=== PATIENT | male | born 1995 | race Caucasian/White ===

== ENCOUNTER 2021-09-20 11:34 | Emergency (ER) | payer SELFPAY ==
[~2021-09-20] VITALS: Ht 185.4 cm; Wt 81.7 kg
[2021-09-20 12:10] LABS: BASOPHILS ABSOLUTE AUTO 0.06 K/mm3 (0.00-0.23); BASOPHILS PERCENT AUTO 1 % (0-2); EOSINOPHILS ABSOLUTE AUTO 0.32 K/mm3 (0.00-0.68); EOSINOPHILS PERCENT AUTO 4 % (0-6); Hematocrit 42.9 % (37.0-53.0); Hemoglobin 14.6 g/dL (13.5-17.5); IMMATURE GRAN ABSOLUTE AUTO 0.04 K/mm3 (0.00-0.10); IMMATURE GRAN PERCENT AUTO 1 % (0-1); LYMPHOCYTES ABSOLUTE AUTO 2.56 K/mm3 (0.84-5.20); LYMPHOCYTES PERCENT AUTO 29 % (21-46); MONOCYTES ABSOLUTE AUTO 0.72 K/mm3 (0.16-1.47); MONOCYTES PERCENT AUTO 8 % (4-13); Mean Corpuscular HGB 31.2 pg (26.0-34.0); Mean Corpuscular Volume 92 fL (80-100); Mean Platelet Volume 8.6 fL (9.1-12.4); NEUTROPHILS ABSOLUTE AUTO 5.08 K/mm3 (1.96-9.15); NEUTROPHILS PERCENT AUTO 58 % (41-73); Platelet Count 561 K/mm3 (150-400); Red Blood Cell Count 4.68 M/mm3 (4.30-5.90); White Blood Cell Count 8.78 K/mm3 (4.00-11.30)
[2021-09-20 12:33] LABS: Alanine Aminotransfer (ALT/SGP 34 U/L (12-78); Albumin, Blood 3.6 g/dL (3.4-5.0); Albumin/Globulin Ratio 0.9 (0.8-1.8); Alk Phos 153 U/L (50-136); Anion Gap 2 mmol/L (6-16); Aspartate Aminotrans (AST/SGOT 17 U/L (12-37); Bilirubin, Total 0.6 mg/dL (0.1-1.0); Blood Urea Nitrogen 14 mg/dL (8-24); Bun/Creatinine Ratio 14.8 (12.0-20.0); CO2, Blood 31 mmol/L (21-32); CPK Creatine Kinase 130 U/L (39-308); Calcium, Blood 9.4 mg/dL (8.5-10.1); Chloride, Blood 104 mmol/L (98-108); Creatinine, Blood 0.95 mg/dL (0.60-1.20); Globulin, Blood 4.2 g/dL (2.2-4.0); Glomerular Filtration Rate >60 (60-); Glucose, Blood 113 mg/dL (70-99); Sodium, Blood 137 mmol/L (136-145); Total Protein, Blood 7.8 g/dL (6.4-8.2)
[2021-09-20 12:46] LABS: Creatine Kinase MB <1.0 ng/mL (0.0-3.6); Creatine Kinase MB Index Unable to Calculate (0.0-4.0)
[2021-09-20 16:14] LABS: Source, Urine Clean Catch
[2021-09-20 16:22] LABS: Appearance, Urine Clear (Clear); Bilirubin, Urine Neg (Neg); Blood, Urine Neg (Neg); Color, Urine Yellow (P-Yellow); Glucose Qualitative, Urine Neg (Neg); Ketones, Urine Neg (Neg); Leukocyte Esterase, Urine 1+ (Neg); Nitrite, Urine Neg (Neg); Protein, Urine Neg (Neg); Specific Gravity, Urine 1.025 (1.003-1.022); Urobilinogen, Urine NORM (Normal)
[2021-09-20 16:37] LABS: Bacteria Rare /hpf; Red Blood Cells, Urine 0-2 /hpf (0-2); Squamous Epithelial Cells Rare /hpf (Few); White Blood Cells, Urine 0-2 /hpf (0-5)
[2021-09-20] MEDS ORDERED: HYDR1TAB94 PO (18:53)
[2021-09-20] MEDS ORDERED: IBU800 MG PO (18:53)
== END 2021-09-20 19:01 | disposition home or self-care (01) ==
LOC: ER 11:34
PROVIDERS: Physician Assistant
DX: S42.202A Unspecified fracture of upper end of left humerus, initial encounter for closed fracture (principal); S42.201A Unspecified fracture of upper end of right humerus, initial encounter for closed fracture; S22.049A Unspecified fracture of fourth thoracic vertebra, initial encounter for closed fracture; S22.059A Unspecified fracture of T5-T6 vertebra, initial encounter for closed fracture; S22.079A Unspecified fracture of T9-T10 vertebra, initial encounter for closed fracture; X58.XXXA Exposure to other specified factors, initial encounter
CPT/HCPCS: 71260; 80053; 81001; 82550; 82553; 85025; 87086; 99283; A9270; J1885; Q9967

== ENCOUNTER 2021-10-19 15:40 | Emergency (ER) | payer BC ==
[~2021-10-19] VITALS: Ht 185.4 cm; Wt 81.7 kg
[~2021-10-19 15:40] MED LIST: HYDR1TAB94 PO; IBU800 MG PO
[2021-10-19 16:32] LABS: BASOPHILS ABSOLUTE AUTO 0.11 K/mm3 (0.00-0.23); BASOPHILS PERCENT AUTO 1 % (0-2); EOSINOPHILS ABSOLUTE AUTO 1.24 K/mm3 (0.00-0.68); EOSINOPHILS PERCENT AUTO 12 % (0-6); Hematocrit 49.6 % (37.0-53.0); Hemoglobin 15.4 g/dL (13.5-17.5); IMMATURE GRAN ABSOLUTE AUTO 0.08 K/mm3 (0.00-0.10); IMMATURE GRAN PERCENT AUTO 1 % (0-1); LYMPHOCYTES PERCENT AUTO 39 % (21-46); MONOCYTES ABSOLUTE AUTO 0.62 K/mm3 (0.16-1.47); MONOCYTES PERCENT AUTO 6 % (4-13); Mean Corpuscular HGB 29.7 pg (26.0-34.0); Mean Corpuscular Volume 96 fL (80-100); Mean Platelet Volume 9.4 fL (9.1-12.4); NEUTROPHILS ABSOLUTE AUTO 4.35 K/mm3 (1.96-9.15); NEUTROPHILS PERCENT AUTO 42 % (41-73); Platelet Count 414 K/mm3 (150-400); RDW Coefficient Variation 11.8 % (11.7-14.2); RDW Standard Deviation 41.3 fL (35.1-46.3); Red Blood Cell Count 5.19 M/mm3 (4.30-5.90)
[2021-10-19] MEDS ORDERED: BUPROPION XL450 MG PO (16:39)
[2021-10-19] MEDS ORDERED: ALPR1 PO (16:40)
[2021-10-19] MEDS ORDERED: ABILIFY MYCITE10 M2 PO (16:40)
[2021-10-19] MEDS ORDERED: CYCL10 PO (16:40)
[2021-10-19 16:50] LABS: Alanine Aminotransfer (ALT/SGP 34 U/L (12-78); Albumin, Blood 4.2 g/dL (3.4-5.0); Albumin/Globulin Ratio 0.9 (0.8-1.8); Alk Phos 162 U/L (50-136); Anion Gap 14 mmol/L (6-16); Aspartate Aminotrans (AST/SGOT 26 U/L (12-37); Bilirubin, Total 0.3 mg/dL (0.1-1.0); Blood Urea Nitrogen 16 mg/dL (8-24); Bun/Creatinine Ratio 16.9 (12.0-20.0); CO2, Blood 18 mmol/L (21-32); Calcium, Blood 9.4 mg/dL (8.5-10.1); Chloride, Blood 106 mmol/L (98-108); Creatinine, Blood 0.95 mg/dL (0.60-1.20); Globulin, Blood 4.5 g/dL (2.2-4.0); Glomerular Filtration Rate >60 (60-); Glucose, Blood 78 mg/dL (70-99); Prolactin 6.2 ng/mL (2.5-17.4); Sodium, Blood 138 mmol/L (136-145); Total Protein, Blood 8.7 g/dL (6.4-8.2)
[2021-10-19] MEDS ORDERED: Xanax1 MG PO (17:41)
== END 2021-10-19 17:57 | disposition home or self-care (01) ==
LOC: ER 15:40
PROVIDERS: Emergency Medicine
DX: R56.9 Unspecified convulsions (principal); F32.89 Other specified depressive episodes
CPT/HCPCS: 70450; 73070; 80053; 84146; 85025; A9270; J2060

== ENCOUNTER 2022-01-07 09:26 | Emergency (ER) | payer BC ==
[~2022-01-07] VITALS: Ht 185.4 cm; Wt 81.2 kg
[~2022-01-07 09:26] MED LIST changes: +ABILIFY MYCITE10 M2 PO; +ALPR1 PO; +BUPROPION XL450 MG PO; +CYCL10 PO; +Xanax1 MG PO
[2022-01-07 10:21] LABS: BASOPHILS ABSOLUTE AUTO 0.06 K/mm3 (0.00-0.23); BASOPHILS PERCENT AUTO 0 % (0-2); EOSINOPHILS PERCENT AUTO 1 % (0-6); Hematocrit 46.9 % (37.0-53.0); Hemoglobin 16.4 g/dL (13.5-17.5); IMMATURE GRAN ABSOLUTE AUTO 0.09 K/mm3 (0.00-0.10); IMMATURE GRAN PERCENT AUTO 1 % (0-1); LYMPHOCYTES ABSOLUTE AUTO 2.26 K/mm3 (0.84-5.20); LYMPHOCYTES PERCENT AUTO 17 % (21-46); MONOCYTES ABSOLUTE AUTO 0.81 K/mm3 (0.16-1.47); MONOCYTES PERCENT AUTO 6 % (4-13); Mean Corpuscular HGB 29.2 pg (26.0-34.0); Mean Corpuscular Volume 84 fL (80-100); Mean Platelet Volume 9.3 fL (9.1-12.4); NEUTROPHILS ABSOLUTE AUTO 10.28 K/mm3 (1.96-9.15); NEUTROPHILS PERCENT AUTO 76 % (41-73); Platelet Count 308 K/mm3 (150-400); RDW Coefficient Variation 12.4 % (11.7-14.2); RDW Standard Deviation 37.7 fL (35.1-46.3); Red Blood Cell Count 5.62 M/mm3 (4.30-5.90)
[2022-01-07 10:48] LABS: Alanine Aminotransfer (ALT/SGP 24 U/L (12-78); Albumin, Blood 4.9 g/dL (3.4-5.0); Albumin/Globulin Ratio 1.4 (0.8-1.8); Alk Phos 126 U/L (50-136); Anion Gap 10 mmol/L (6-16); Aspartate Aminotrans (AST/SGOT 22 U/L (12-37); Bilirubin, Total 0.3 mg/dL (0.1-1.0); Blood Urea Nitrogen 11 mg/dL (8-24); Bun/Creatinine Ratio 15.9 (12.0-20.0); CO2, Blood 22 mmol/L (21-32); Calcium, Blood 9.1 mg/dL (8.5-10.1); Chloride, Blood 109 mmol/L (98-108); Creatinine, Blood 0.69 mg/dL (0.60-1.20); Globulin, Blood 3.4 g/dL (2.2-4.0); Glomerular Filtration Rate >60 (60-); Glucose, Blood 94 mg/dL (70-99); Potassium, Blood 3.6 mmol/L (3.5-5.5); Sodium, Blood 141 mmol/L (136-145); Total Protein, Blood 8.3 g/dL (6.4-8.2)
[2022-01-07 11:14] LABS: Influenza A, PCR NEGATIVE (NEGATIVE); Influenza B, PCR NEGATIVE (NEGATIVE); Resp Syncytial Virus, PCR NEGATIVE (NEGATIVE); SARS-Cov-2 (COVID-19) PCR, MMC NEGATIVE (NEGATIVE)
[2022-01-07 11:40] LABS: Source, Urine Clean Catch
[2022-01-07 11:52] LABS: Bilirubin, Urine Neg (Neg); Blood, Urine Neg (Neg); Glucose Qualitative, Urine Neg (Neg); Ketones, Urine 2+ (Neg); Leukocyte Esterase, Urine Neg (Neg); Nitrite, Urine Neg (Neg); Protein, Urine 1+ (Neg); Specific Gravity, Urine 1.015 (1.003-1.022); Urobilinogen, Urine NORM (Normal)
[2022-01-07 12:08] LABS: Appearance, Urine Clear (Clear); Color, Urine Pale Yellow (P-Yellow)
[2022-01-07] MEDS ORDERED: ONDA4ODT MM (12:17)
== END 2022-01-07 13:15 | disposition home or self-care (01) ==
LOC: ER 09:26
PROVIDERS: Physician Assistant
DX: R11.2 Nausea with vomiting, unspecified (principal); Z79.899 Other long term (current) drug therapy
CPT/HCPCS: 0241U; 36415; 80053; 83690; 85025; 96374; 99284; J2405; J7030

== ENCOUNTER 2022-12-22 15:07 | Emergency (ER) | payer OTHER ==
[~2022-12-22] VITALS: Ht 185.4 cm; Wt 88.5 kg
[~2022-12-22 15:07] MED LIST changes: +ONDA4ODT MM
[2022-12-22] MEDS ORDERED: MIRT15ST PO (16:55)
[2022-12-22] MEDS ORDERED: LAMOTRIGINE250 MG PO (16:55)
[2022-12-22] MEDS ORDERED: NEURONTIN300 MG PO (16:55)
== END 2022-12-22 17:55 | disposition home or self-care (01) ==
LOC: ER 15:07
DX: R53.1 Weakness (principal); R20.2 Paresthesia of skin; R20.0 Anesthesia of skin; M25.512 Pain in left shoulder; Z79.899 Other long term (current) drug therapy
CPT/HCPCS: 73030

== ENCOUNTER 2025-04-11 09:10 | Inpatient (IN) | payer OTHER ==
[~2025-04-11] VITALS: Ht 185.4 cm; Wt 73.5 kg
[~2025-04-11 09:10] MED LIST changes: +LAMOTRIGINE250 MG PO; +MIRT15ST PO; +NEURONTIN300 MG PO
[2025-04-11] MEDS ORDERED: Ibuprofen 600 MG Tab PO PRN (12:00)
[2025-04-11] MEDS ORDERED: LORazepam 2 MG Tab PO PRN (12:00)
[2025-04-11] MEDS ORDERED: LORazepam 2 MG/ML 1ML Injection IM PRN (12:00)
[2025-04-11] MEDS ORDERED: Ondansetron 4 MG SoluTab MM PRN (12:00)
[2025-04-11] MEDS ORDERED: TraZODone HCl 50 MG Tab PO PRN (12:05)
[2025-04-11] MEDS ORDERED: Calcium Carbonate 500 MG Tab Chew PO PRN (12:05)
[2025-04-11] MEDS ORDERED: OLANZapine ODT 10 MG Tab MM PRN (12:05)
[2025-04-11] MEDS ORDERED: Acetaminophen 325 MG TABLET PO PRN (12:05)
[2025-04-11] MEDS ORDERED: Aluminum Hydroxide 320MG/5ML 473 ML PO PRN (12:05)
[2025-04-11] MEDS ORDERED: Melatonin 3 MG Tab PO PRN (12:05)
[2025-04-11] MEDS ORDERED: Polyethylene Glycol 3350 17 gm PO PRN (12:05)
[2025-04-11] MEDS ORDERED: DiphenhydrAMINE HCl 50 MG Cap PO PRN (12:10)
[2025-04-11] MEDS ORDERED: HydrOXYzine Pamoate 50 MG Cap PO PRN (12:10)
[2025-04-11] MEDS ORDERED: Haloperidol Lactate Inj. 5 MG/ML Injection IM PRN (12:10)
[2025-04-11] MEDS ORDERED: DiphenhydrAMINE HCl 50 MG/ML 1ML Vial IM PRN (12:10)
[2025-04-11] MEDS ORDERED: Haloperidol 5 MG Tab PO PRN (12:10)
[2025-04-11 13:00] VITALS: BP 138/95
[2025-04-11] MEDS ORDERED: LamoTRIgine 100 MG Tab PO SCH (13:00)
[2025-04-11] MEDS ORDERED: Buprenorphine HCL/Naloxone HCL 8MG-2MG Tab SL SCH (13:00)
--- NOTE | 2025-04-11 15:56 | NUR ---
ADMISSION NOTE- 1300 Patient was picked up from [facility], and tranported to the unit at 1300. Maria Esther is alert and orientated. He denies suicidal thoughts, self harm ideation, and homicidal ideation. Patient denies all hallucination. Patient states MMD, TRAM, autism. He states mom is a trigger, as she makes him feel post trauma triggered. Patient lives alone with his cat. His cat is a protective measure. 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 Meth x 2 months, heroin x 4 months and they "messed up my thought process". He states that yesterday he wished he was for about '10 minutes'. He reconized this was becuase of withdrawal and wanted it to end. It has been a while since he last used- over a week for the street drugs but did use Kratom to help himself through withdrawal. Maria Esther came to the U and Suboxone was started today at 1300. side effects, med education, desired effect were discussed with the patient. He reports understanding of this medication. He was orientated to the unit. Patient signed all forms and is voluntary. He is currently in the day room visiting with peers.
[2025-04-11] MEDS ORDERED: ARIPiprazole 5 MG Tab PO SCH (18:00)
[2025-04-11 19:13] VITALS: BP 142/83
[2025-04-11] MEDS ORDERED: LAMOTRIGINE PO SCH (21:00)
[2025-04-11] MEDS ORDERED: LamoTRIgine 25 MG Tab PO SCH (21:00)
--- NOTE | 2025-04-12 05:05 | NUR ---
SHIFT SUMMARY Pt is A&O, calm, cooperative, eye contact is appropriate. Pt states that his mood is "good," affect is slightly constricted. Pt denies SI, HI, and hallucinations. He also denies current pain. Pt stated that he feels the new order for Suboxone is working well. Pt received PRN melatonin and trazodone during the evening med pass. Pt was active on the unit throughout the evening, watching TV with peers. Staff continues to monitor q15m for safety and wellness.
[2025-04-12 06:59] LABS: CHOL/HDL RATIO 3.5; Cholesterol 176 mg/dL (50-200); HDL Cholesterol 50 mg/dL (>39); LDL/HDL RATIO 2.4; Low Density Lipoprotein Chol 118 mg/dL (0-110); Triglycerides 38 mg/dL (30-140); Very Low Density Lipoprot Chol 7 mg/dL (6-28)
[2025-04-12 08:14] VITALS: BP 141/89
[2025-04-12] MEDS ORDERED: Multivitamins 1 Tab PO SCH (09:00)
--- NOTE | 2025-04-12 14:47 | NUR ---
THIS PATIENT MOTHER CALLED. SHE IS NOT AUTHORIZED TO RECIEVE ANY INFORMATION ON THIS PATIENT. HOWEVER SHE ASKED FOR THE BEHAVIORAL UNIT FAX NUMBER. SHE SENT INFORMATION RELATING TO DRUGS/PARAPHENELIA FOUND IN THE PATIENTS HOME, SHE IS WORRIED ABOUT SEIZURE FROM WITHDRAWAL. LETTER PLACED IN CHART.
--- NOTE | 2025-04-12 16:49 | NUR ---
Shift summary- Patient actively participating in group, and social activities today. Patient denies SI, HI and hallucination. Although he did say that he heard something that wasn't there yesterday but did not tell staff yesterday. Patient has a happy affect and his actions reflect his stated mood and affect. Patient is having good effect of decreasing cravings with the suboxone. His dose increases to a full tablet in the AM. He sits with staff while this dissolves under his tongue and willinly answers assessment questions. Patients mother faxed a letter to the unit today. We are not discuss anything with her per pateint request. The letter is tucked into the patient chart front cover. Patient denies concerns at this time.
[2025-04-12] MEDS ORDERED: ARIPiprazole 10 MG Tab PO SCH (18:00)
[2025-04-12 19:11] VITALS: BP 126/75
[2025-04-12] MEDS ORDERED: RisperiDONE 1 MG Tab PO SCH (21:00)
--- NOTE | 2025-04-13 04:35 | NUR ---
SHIFT SUMMARY Pt is A&O, calm, cooperative, eye contact is appropriate. Pt states that his mood is good, affect is constricted. Pt denies SI, HI, and hallucinations. He also denies current pain. Pt received PRN melatonin and trazodone during the evening med pass. Pt was active on the unit throughout the evening, watching TV with peers. Staff continues to monitor q15m for safety and wellness.
[2025-04-13 08:21] VITALS: BP 127/84
[2025-04-13] MEDS ORDERED: Buprenorphine HCL/Naloxone HCL 8MG-2MG Tab SL SCH ×2 (09:00→21:00)
[2025-04-13] MEDS ORDERED: ARIPiprazole 5 MG Tab PO SCH (09:00)
--- NOTE | 2025-04-13 11:11 | NUR ---
Patient immediately shares about his struggles with belonging, with depression and with isolating himself. He shares about his Religion mulu and his struggle with drug addiction and the tension those opposing life styles cause. We explore his beliefs about God's perfect love and God's desire to empower, heal and restore. He describes his challenging life from childhood to the present in a life review exercise and we look into his current emotional/mental/spiritual obstacle. The patient explains about his goals to learn and grow in the areas of and of [facility] care. We discuss possible careers, schooling options and practical steps he can work on today. I normalize his experience, reinforce helpful attitudes and practices, explore a spiritual care plan for after discharge and I provided therapeutic listening and prayer. The patient responded well and showed signs of greater peace and hope about his future. I will continue to remain available to patient and family.
--- NOTE | 2025-04-13 18:16 | NUR ---
SHIFT SUMMARY: ASSUMED CARE FROM PRIOR NURSE. PATIENT IS A/OX4, ABLE TO VOICE NEEDS AND HAVE MEANINGFUL CONVERSATIONS. HE IS COMPLIANT WITH HIS POC AND MEDICATIONS. HE CURRENTLY DENIES ANY SI, VA AND AH. HE IS UP FOR DISCHARGE 04/14/25. WE WILL LOOK INTO OUT PATIENT DRUG REHAB IN PATIENT HAS 2 MONTH WAITING LIST. WE WILL CONTINUE TO MONITOR EVERY 15 MINUTES FOR SAFETY AND COMFORT.
[2025-04-13] MEDS ORDERED: RisperiDONE 1 MG Tab PO SCH (21:00)
[2025-04-13 22:54] VITALS: BP 119/80
--- NOTE | 2025-04-14 05:18 | NUR ---
SHIFT SUMMARY Pt is A&O, calm, cooperative, eye contact is appropriate. Pt states that his mood is good, affect is constricted. Pt denies SI, HI, and hallucinations. He also denies current pain. Pt received PRN melatonin and trazodone during the evening med pass. Pt c/o constipation, but wanted to defer taking Miralax until tomorrow morning. Pt was actively participating in unit activities during the evening. Staff continues to monitor q15m for safety and wellness.
[2025-04-14 08:18] VITALS: BP 130/86
--- NOTE | 2025-04-14 09:45 | NUR ---
IMPORTANT DISCHARGE INFORMATION PATIENT TO BE PICKED AT 1:30PM VIA [facility]. D/C LOCATION PATIENT REQUESTED, [address] [place]. PCP FOLLOW UP ON 04/16/25 AT 9:45 AM WITH [facility] FOLLOW UP ON 04/16/25 AT 8:45AM WITH HOLLAND HINOJOSA. PHARMACY: [facility] RESOUCES: LUCIO COOPER FOR OUT PATIENT OPIOD TREATMENT PROGRAM ADAPT
--- NOTE | 2025-04-14 11:16 | NUR ---
Patient requested a second visit from spiritual care. The patient tells me that he will D/C home today. We talk about a good spiritual care discharge plan. I provided information about addiction support groups, churches in the area and my office phone number for added support with his spiritual journey. We also talk about healing and formative activities like hiking, art and daily walks. The patient seems cautiously hopeful and and genuinely excited about the addiction recovery groups presented. I provided prayer for the patient which caused him to be a bit tearful but in a good way. He voices much appreciation and states that the visits have been incredibly meaningful.
[2025-04-14] MEDS ORDERED: LAMO25 PO (11:50)
[2025-04-14] MEDS ORDERED: LAMO100 PO (11:50)
[2025-04-14] MEDS ORDERED: MELA3 PO (11:51)
[2025-04-14] MEDS ORDERED: MULVITA PO (11:51)
[2025-04-14] MEDS ORDERED: RISP3 PO (11:52)
[2025-04-14] MEDS ORDERED: TRAZ50 PO (11:53)
[2025-04-14] MEDS ORDERED: BUPRENORPHIN-N1 EAC1 SL (11:56)
--- NOTE | 2025-04-14 13:53 | NUR ---
DISCHARGE DC INSTRUCTIONS GONE OVER WITH PT AND HE VERBALIZED UNDERSTANDING. INFORMATION GIVEN ON [facility] OUTPATIENT TREATMENT. PT HAS TWO DC APPOINTMENTS SCHEDULED AT [facility] ON 04/16/25. PT'S MEDICATIONS FAXED TO [facility]. HARD SCRIPT FOR SUBOXONE PROVIDED TO PT AND PT VERBALIZED UNDERSTANDING THAT HE WOULD TAKE THE PRESCRIPTION IN TO HAVE IT FILLED. PT'S BELONGINGS RETURNED AND HE WAS PICKED UP BY [facility] [employer]. PT LEFT UNIT AT 1323.
== END 2025-04-14 13:23 | disposition home or self-care (01) | DRG 885 ==
LOC: BHU 09:10
PROVIDERS: ADMIT Student in an Organized Health Care Education/Training Program
DX: F33.2 Major depressive disorder, recurrent severe without psychotic features (principal); F84.0 Autistic disorder; F15.90 Other stimulant use, unspecified, uncomplicated; F11.90 Opioid use, unspecified, uncomplicated; F19.99 Other psychoactive substance use, unspecified with unspecified psychoactive substance-induced disorder; Z91.018 Allergy to other foods; F28 Other psychotic disorder not due to a substance or known physiological condition
CPT/HCPCS: 36415; 80061; 83036; A9270